=== PATIENT | female | born 1995 | race Caucasian/White ===

== ENCOUNTER → 2020-05-22 | Outpatient (CLI) | payer OTHER ==
[~2020-05-22] MED LIST: ACET-683 PO; BENA25CA4 PO; DOCU100C16 PO; IBUP80TA PO; MAPA500T2 PO; PRENTAB9 PO
--- NOTE | 2020-07-13 14:14 | REP ---
OB ULTRASOUND: TECHNIQUE: Real time sonographic evaluation of the gravid uterus is performed. FINDINGS: There is a single living intrauterine gestation. Reportedly estimated gestational age based on the last menstrual period is 36 weeks 0 days. Today's measurements yield an average ultrasound age of 35 weeks 0 days with EDC 06/26/20. BIOMETRY CHART: BPD 90 mm 36 weeks 2 days Head circumference 312 mm 34 weeks 6 days Abdominal circumference 323 mm 36 weeks 2 days Femur length 65 mm 33 weeks 2 days The position is cephalic. Placenta is anterior and grade 2 with no previa or abruption. The stomach, kidneys and bladder are visualized and are grossly unremarkable. S/D ratio in the umbilical artery is 2.33 and RI is 0.57. Amniotic fluid appears subjectively in the lower range of normal with NIDHI 10.0. Biophysical profile score is 8/8. MTDD
== END ==
LOC: M RAD 10:36
PROVIDERS: ATTEND Registered Nurse Maternal Newborn
DX: Z36.89 Encounter for other specified antenatal screening (principal); Z3A.36 36 weeks gestation of pregnancy

== ENCOUNTER 2020-06-23 02:11 | Outpatient (CLI) | payer OTHER ==
--- NOTE | 2020-06-23 04:58 | IPNPDOC ---
Obstetrical Progress Note Date of Service Jun 23, 2020 Subjective 24yo at 40+1 presented to L+D with concern for ROM 1h ago reported clear but she is unsure. She denied VB, regular painful contractions or decreased FM. Assessment Variability: Moderate Accelerations: Positive (15x15) Decelerations: None Heart Rate Tracing: Category I Tocometer Contractions: Yes Frequency: irregular Sterile Vaginal Examination Dilation: 1cm Effacement (%): 30% Station: -3 Cervical Consistency: Medium Cervical Position: Posterior Postion/Presentation: Cephalic presentation (by US) Assessment and Plan Group B Streptococcus: Positive Additional Comments 24yo at 41+0 pesented for concen for ROM. CAT I tracing reactive. Cephalic by US. MVP 3.8cm. +FM on TAUS. VS normal. Nitrazine negative. No pooling. No ferning. ROM unlikley at this time. - provided with routine OB return precautions - patient otherwise to follow up at next [facility] Physical Examination General Exam: Positive: Alert, No Acute Distress ENT EXAM: Positive: Atraumatic Chest Exam: Positive: Normal air movement Heart Exam: Positive: Rate Normal Abdomen Exam: Positive: Soft, Tenderness (non tender) Psych Exam: Positive: Mental status HUNTER CAMPA DO Jun 23, 2020 04:58
[2020-06-23] MEDS ORDERED: BENA25CA4 PO (15:34)
[2020-06-23] MEDS ORDERED: MAPA500T2 PO (15:34)
[2020-06-23] MEDS ORDERED: PRENTAB9 PO (15:34)
== END 2020-06-23 04:40 | disposition home or self-care (01) ==
LOC: M LDO 02:11
DX: O26.893 Other specified pregnancy related conditions, third trimester (principal); Z3A.40 40 weeks gestation of pregnancy
CPT/HCPCS: 59025; G0378; G0463

== ENCOUNTER 2020-06-23 15:26 | Inpatient (IN) | payer OTHER ==
[2020-06-23] VITALS (39 sets, daily range): BP systolic 71–132; BP diastolic 36–93
[~2020-06-23] VITALS: Ht 157.5 cm; Wt 80.2 kg
[2020-06-23] MEDS ORDERED: MAPA500T2 PO (15:34)
[2020-06-23] MEDS ORDERED: PRENTAB9 PO (15:34)
[2020-06-23] MEDS ORDERED: BENA25CA4 PO (15:34)
[2020-06-23] MEDS ORDERED: PENICILLIN G POTASSIUM IV 5 MU in D5W MINI-BAG PLUS 100 ML IV STA (15:46)
[2020-06-23] MEDS ORDERED: LACTATED RINGER'S 1000 ML IV ONE (16:00)
[2020-06-23 16:14] LABS: HEMATOCRIT 38.3 % (36.0-47.0); HEMOGLOBIN 13.7 g/dl (12.0-15.5); MEAN CORPUSCULAR HEMOGLOBIN 32.2 pg (27.0-33.0); MEAN CORPUSCULAR HGB CONC 35.8 g/dl (32.0-36.5); MEAN CORPUSCULAR VOLUME 90.1 fl (80.0-96.0); PLATELET COUNT, AUTOMATED 151 10^3/uL (150-450); RED BLOOD COUNT 4.25 10^6/uL (4.00-5.40); WHITE BLOOD COUNT 12.7 10^3/uL (4.0-10.0)
[2020-06-23] MEDS ORDERED: BUTORPHANOL 2 MG/ML INJ (J0595) IV ONE (17:15)
[2020-06-23] MEDS ORDERED: PROMETHAZINE INJ 25 MG/ML VIAL (J2550) IV ONE (17:15)
[2020-06-23] MEDS ORDERED: PROMETHAZINE INJ 25 MG/ML VIAL (J2550) As Ordered ONE (17:16)
[2020-06-23] MEDS ORDERED: BUTORPHANOL 2 MG/ML INJ (J0595) As Ordered ONE (17:17)
[2020-06-23] MEDS: LR 1,000 ML IV SCH (17:49)
[2020-06-23] MEDS: PENICILLIN G POTASSIUM IV 2.5 MU in IV 1 EA IV SCH (19:59)
[2020-06-23] MEDS ORDERED: OXYTOCIN 30 UNITS IN 0.9% NaCl 500ML IV BAG (J2590) As Ordered ONE (21:04)
[2020-06-23] MEDS ORDERED: FENTANYL 2MCG/ML ROPIVACAINE 0.2% IN 0.9% NACL 100ML IVBAG As Ordered ONE (21:24)
[2020-06-23] MEDS: BUTORPHANOL 2 MG/ML INJ (J0595) IV ONE (21:45)
[2020-06-23] MEDS ORDERED: OXYTOCIN DRIP 30 UNITS in IV 1 EA IV SCH (21:45)
[2020-06-23] MEDS: PROMETHAZINE INJ 25 MG/ML VIAL (J2550) IM ONE (21:45)
[2020-06-23] MEDS ORDERED: ePHEDrine SULFATE 25 MG/5 ML(5MG/ML) SYRINGE As Ordered ONE (23:43)
[2020-06-24] VITALS (35 sets, daily range): BP systolic 79–128; BP diastolic 40–72
[2020-06-24] MEDS: PENICILLIN G POTASSIUM IV 2.5 MU in IV 1 EA IV SCH (00:05)
[2020-06-24] MEDS ORDERED: ePHEDrine SULFATE 25 MG/5 ML(5MG/ML) SYRINGE As Ordered ONE (00:11)
[2020-06-24] MEDS ORDERED: diphenhydrAMINE 50MG/ML VIAL (J1200) IV PRN (00:15)
[2020-06-24] MEDS ORDERED: EPIDURAL/PCA KEYS XX PRN (00:15)
[2020-06-24] MEDS ORDERED: EPIDURAL COMMENT XX SCH (00:15)
[2020-06-24] MEDS ORDERED: ONDANSETRON 4MG/2ML VIAL IV PRN (00:15)
[2020-06-24] MEDS ORDERED: NALOXONE INJ 0.4MG/1ML VIAL (J2310 PER 1MG) IV PRN (00:15)
[2020-06-24] MEDS ORDERED: LACTATED RINGER'S 1000 ML IV PRN (00:15)
[2020-06-24] MEDS ORDERED: FENTANYL/ROPIVACAINE/NACL BAG 100 ML EPIDURAL SCH (00:15)
[2020-06-24] MEDS ORDERED: REFRIGERATOR IV KEYS XX PRN (00:15)
[2020-06-24] MEDS ORDERED: ePHEDrine SULFATE 25 MG/5 ML(5MG/ML) SYRINGE IV PRN (00:15)
[2020-06-24 03:43] LABS: CORD GAS ABE A -5.8; CORD GAS HCO3 A 22.3 MEQ/L; CORD GAS O2 SAT A 31.5 %; CORD GAS PH A 7.234 UNITS; CORD GAS PO2 A 17.5 mmHg; CORD GAS SBC A 18.3 MEQ/L
[2020-06-24 03:44] LABS: CORD GAS HCO3 V 19.2 MEQ/L; CORD GAS PCO2 V 33.3 mmHg; CORD GAS PH V 7.378 UNITS; CORD GAS PO2 V 25.6 mmHg; CORD GAS TCO2 V 20.2 MEQ/L
[2020-06-24 03:45] LABS: CORD GAS ABE V -4.9; CORD GAS O2 SAT V 62.5 %; CORD GAS SBC V 19.6 MEQ/L
[2020-06-24] MEDS: OXYTOCIN DRIP 30 UNITS in IV 1 EA IV SCH ×2 (03:48→07:48)
[2020-06-24] MEDS: LR 1,000 ML IV SCH (03:51)
[2020-06-24] MEDS ORDERED: METHYLERGONOVINE MALEATE 0.2 MG TAB PO PRN (04:00)
[2020-06-24] MEDS ORDERED: DOCUSATE SODIUM 100 MG CAP PO PRN (04:00)
[2020-06-24] MEDS ORDERED: MEASLES,MUMPS,RUBELLA VACCINE INJ (MMR-II) (90707) SC SCH (04:00)
[2020-06-24] MEDS ORDERED: MOM 30ML SUSPENSION UDC PO PRN (04:00)
[2020-06-24] MEDS ORDERED: IBUPROFEN 800 MG TAB PO PRN (04:00)
[2020-06-24] MEDS ORDERED: ACETAMINOPHEN 500 MG TAB PO PRN (04:00)
[2020-06-24] MEDS ORDERED: DIBUCAINE 1% OINTMENT 30GM TOP PRN (04:00)
[2020-06-24] MEDS ORDERED: ANUSOL HC CREAM 30GM TOP PRN (04:00)
[2020-06-24] MEDS ORDERED: RHOGAM 300 MCG (1500 IU) INJ (J2790) IM SCH (04:00)
[2020-06-24] MEDS ORDERED: ACETAMINOPHEN TAB 650MG DOSE (2X325MG) PO PRN (04:00)
[2020-06-24] MEDS ORDERED: OXYTOCIN INJ 10 UNITS/ML VIAL (J2590) IV ONE (04:00)
[2020-06-24] MEDS: PRENATAL VITAMINS CHEWABLE TABLET PO SCH (08:59)
[2020-06-24] MEDS: IBUPROFEN 600MG TAB PO PRN (15:29)
[2020-06-25 06:03] VITALS: BP 104/53
--- NOTE | 2020-06-25 08:29 | IPNPDOC ---
Progress Note Date of Service: Jun 25, 2020 Day#: 2 Progress Note 24yo PPD2 s/p uncomplicated at term. Denied n/v/d, cp, sob, nguyễn, visual delphine nges, abd pain, f/c, heavy vaginal bleeding, urinary sx, breast pain. She reports her pain is well controlled. She is tolerating PO, ambulating, urinating, and passing flatus without issue. She is without issue. OBJECTIVE: VITAL SIGNS: Within normal limits, afebrile. Alert and oriented times three. Breath sounds clear to auscultation. Heart rate: Regular rate and rhythm, no murmurs, rubs or gallops. Abdomen: Fundus firm at U-2. Soft, NTTP. [Minimal] lochia. 24yo PPD2 s/p uncomplicated at term. Normal VS. Benign physical exam. Meeting all DC criteria. PLAN: 1. Discharge to home today. 2. Tylenol and Motrin for pain. 3. Encourage breast feeding and ambulation. 4. desires mirena for control in 6wk 5. Routine PP visit in 6 weeks in clinic. 6. Discussed return precautions at length. VS, I&O, 24H, Fishbone Vital Signs/I&O Vital Signs Date Time Temp Pulse Resp B/P (MAP) Pulse Ox O2 Delivery O2 Flow Rate FiO2 06/25/20 06:03 98.3 73 18 104/53 (70) Laboratory Data CBC/BMP HUNTER CAUSEY DO Jun 25, 2020 08:29
[2020-06-25] MEDS ORDERED: IBUP80TA PO (08:32)
[2020-06-25] MEDS ORDERED: ACET-683 PO (08:32)
[2020-06-25] MEDS ORDERED: DOCU100C16 PO (08:32)
[2020-06-25 08:43] LABS: HEMATOCRIT 33.9 % (36.0-47.0); HEMOGLOBIN 11.5 g/dl (12.0-15.5); MEAN CORPUSCULAR HEMOGLOBIN 32.2 pg (27.0-33.0); MEAN CORPUSCULAR HGB CONC 33.9 g/dl (32.0-36.5); PLATELET COUNT, AUTOMATED 118 10^3/uL (150-450); RED BLOOD COUNT 3.57 10^6/uL (4.00-5.40); WHITE BLOOD COUNT 15.8 10^3/uL (4.0-10.0)
[2020-06-25] MEDS: PRENATAL VITAMINS CHEWABLE TABLET PO SCH (09:15)
[2020-06-25] MEDS: IBUPROFEN 600MG TAB PO PRN (10:45)
--- NOTE | 2020-06-27 16:29 | DN ---
DATE OF DELIVERY: 06/24/2020 DESCRIPTION OF DELIVERY: A 24-year-old 1 admitted in spontaneous labor at 40 weeks 4 days weeks gestational age. She had a spontaneous vaginal delivery with epidural. Live male infant weighing 6 pounds 14 ounces (3110 grams). Apgars of 8 and 9 at one and five minutes respectively. Came out in the posterior occiput (POP) position. PH 7.23, base excess -5.8, venous pH 7.37, base excess -4.9. She sustained a first-degree tear. The placenta delivered spontaneously thereafter. Three-vessel cord, membranes, and tissues intact. Repair of the first degree was done in the usual fashion with a J339 2-0 Vicryl. Sphincter was intact. Posterolateral anterior richter were in completes. Uterus contracted well on the Pitocin. Patient and baby tolerating procedure well. She was GBS positive treated prophylactically on time. MTDD
== END 2020-06-25 12:00 | disposition home or self-care (01) | DRG 807 ==
LOC: M LDO 15:26 → M LDI 15:43 → M OBS 06-24 05:54
PROVIDERS: ADMIT Obstetrics & Gynecology; ATTEND Obstetrics & Gynecology
PROC: 10E0XZZ Delivery of Products of Conception, External Approach (ICD-10-PCS; principal; 2020-06-24)
PROC: 0HQ9XZZ Repair Perineum Skin, External Approach (ICD-10-PCS; 2020-06-24)
DX: O48.0 Post-term pregnancy (principal); Z37.0 Single live birth; Z3A.40 40 weeks gestation of pregnancy; O99.824 Streptococcus B carrier state complicating childbirth; O70.0 First degree perineal laceration during delivery

== ENCOUNTER → 2020-10-17 | Outpatient (CLI) | payer SELFPAY | LOC: M LABSMTC 11:11 | PROVIDERS: ATTEND Pediatrics | DX: Z20.828 Contact with and (suspected) exposure to other viral communicable diseases (principal) ==

== ENCOUNTER → 2021-08-09 | Outpatient (REF) | payer OTHER | LOC: M WUC 19:57 | PROVIDERS: ATTEND Physician Assistant | DX: N39.0 Urinary tract infection, site not specified (principal) ==